=== PATIENT | male | born 1940 | race Caucasian/White ===

== ENCOUNTER 2016-09-11 09:21 | Day surgery (SDC) | payer MEDICARE, OTHER ==
[~2016-09-11] VITALS: Ht 177.8 cm; Wt 106.0 kg
[2016-09-11 09:57] VITALS: BP 193/95
[2016-09-11] MEDS ORDERED: GLIM4TAB2 PO (10:02)
[2016-09-11] MEDS ORDERED: TRAM50TA2 PO (10:02)
[2016-09-11] MEDS ORDERED: BUDE10.2 INH (10:02)
[2016-09-11] MEDS ORDERED: CA C1TAB39 PO (10:02)
[2016-09-11] MEDS ORDERED: RANI150T4 PO (10:02)
[2016-09-11] MEDS ORDERED: LACTATED RINGERS 1,000 ML IV SCH (10:03)
[2016-09-11] MEDS ORDERED: LIDOCAINE 1%, 2ML ONE (10:08)
[2016-09-11] MEDS ORDERED: LIDOCAINE 1%, 2ML SQ PRN (10:30)
[2016-09-11 10:41] VITALS: BP 162/82
[2016-09-11] MEDS ORDERED: FENTANYL PF 250 MCG/5ML ONE (10:44)
[2016-09-11] MEDS ORDERED: MIDAZOLAM 1 MG/ML, 2ML ONE (10:45)
[2016-09-11] MEDS ORDERED: MITOMYCIN 40 MG in STERILE WATER 20 ML INTVESIC ONE (11:30)
[2016-09-11] MEDS ORDERED: hydrALAzine 20 MG/ML, 1ML IV PRN (13:00)
[2016-09-11] MEDS ORDERED: LABETALOL 5MG/ML, 20ML IV PRN (13:00)
[2016-09-11] MEDS ORDERED: ACETAMINOPHEN 325 MG TABLET PO PRN (13:00)
[2016-09-11] MEDS ORDERED: HYDROmorphone 1 MG/ML, 1ML IV PRN (13:00)
[2016-09-11] MEDS ORDERED: FENTANYL PF 100 MCG/2ML IV PRN (13:00)
[2016-09-11] MEDS ORDERED: ONDANSETRON 2MG/ML, 2ML IVPush PRN (13:00)
[2016-09-11] MEDS ORDERED: OXYcodone 5 MG/5 ML ORAL.SOL UDC PO PRN (13:00)
[2016-09-11] MEDS ORDERED: METOCLOPRAMIDE 5 MG/ML, 2ML IV PRN (13:00)
[2016-09-11] MEDS ORDERED: OMNIPAQUE 350 MG/ML, 50 ML BOTTLE ONE (13:22)
[2016-09-11] MEDS ORDERED: ACETAMINOPHEN 650 MG/20.3 ML UDC ONE (13:39)
[2016-09-11] MEDS ORDERED: OXYcodone 5 MG/5 ML ORAL.SOL UDC ONE (13:39)
[2016-09-11] MEDS ORDERED: CEFAZOLIN 1,000 MG ONE (16:52)
[2016-09-11] MEDS ORDERED: PROPOFOL 10 MG/ML, 20ML ONE (16:52)
[2016-09-11] MEDS ORDERED: ONDANSETRON 2MG/ML, 2ML ONE (16:52)
[2016-09-11] MEDS ORDERED: ROCURONIUM 10 MG/ML ONE (16:52)
[2016-09-11] MEDS ORDERED: SUCCINYLCHOLINE 20 MG/ML, 10ML ONE (16:52)
== END 2016-09-11 17:00 | disposition home or self-care (01) ==
LOC: OUT 09:21
PROVIDERS: ATTEND Urology
DX: C67.9 Malignant neoplasm of bladder, unspecified (principal); C66.1 Malignant neoplasm of right ureter; I10 Essential (primary) hypertension; E11.9 Type 2 diabetes mellitus without complications; J44.9 Chronic obstructive pulmonary disease, unspecified; J45.909 Unspecified asthma, uncomplicated; Z72.89 Other problems related to lifestyle; Z90.49 Acquired absence of other specified parts of digestive tract; Z98.890 Other specified postprocedural states; Z87.440 Personal history of urinary (tract) infections; Z87.891 Personal history of nicotine dependence; N13.30 Unspecified hydronephrosis; Z79.84 Long term (current) use of oral hypoglycemic drugs
CPT/HCPCS: 51720; 52235; 52354; 74420; 81003; 82962; 88304; 88305; 88307; 93005; C1758; C1769; J0330; J0360; J0690; J2250; J2405; J2704; J3010; J3490; J7120; J9280; Q9967

== ENCOUNTER 2017-03-07 14:56 | Inpatient (IN) | payer MEDICARE ==
[~2017-03-07] VITALS: Ht 177.8 cm; Wt 108.3 kg
[~2017-03-07 14:56] MED LIST: BUDE10.2 INH; CA C1TAB39 PO; CIPR500T87 PO; ETOMIDATE 20 MG/10 ML ONE; GLIM4TAB2 PO; GLIP5TAB10 PO; GLUC1TAB55 PO; HYDR-3240 PO; MAGN400T36 PO; METR750T PO; PROPOFOL 10 MG/ML, 100ML IV ONE; RANI150T4 PO; ROCURONIUM 10MG/ML,5ML ONE; TRAM50TA2 PO
[2017-03-07 16:41] LABS: HEMATOCRIT 39.6 % (39.2-51.8); HEMOGLOBIN 13.2 g/dL (13.7-18.0); WHITE BLOOD COUNT 15.7 x10^3/uL (3.4-10)
[2017-03-07 16:55] LABS: BLOOD UREA NITROGEN 86 mg/dL (7-18)
[2017-03-07 17:11] LABS: ASPARTATE AMINO TRANSFERASE 32 U/L (15-37)
[2017-03-07] MEDS ORDERED: MORPHINE SULFATE 4 MG/ML, 1ML IVPush ONE (17:30)
[2017-03-07] MEDS ORDERED: CEFTAZIDIME PMX 2 GM/50ML 50 ML IV ONE (17:30)
[2017-03-07] MEDS ORDERED: CEFTAZIDIME 2,000 MG in SODIUM CHLORIDE 0.9% 50 ML IV ONE (17:30)
[2017-03-07] MEDS ORDERED: SODIUM CHLORIDE 0.9%, 500ML IVBOLUS ONE (17:30)
[2017-03-07] MEDS ORDERED: MORPHINE SULFATE 4 MG/ML, 1ML ONE (17:44)
[2017-03-07] MEDS ORDERED: VANCOMYCIN PER PHARMACY MC ONE (18:00)
[2017-03-07] MEDS ORDERED: DOCUSATE 100 MG CAPSULE PO PRN (19:00)
[2017-03-07] MEDS ORDERED: hydrALAzine 20 MG/ML, 1ML IVPush PRN (19:00)
[2017-03-07] MEDS ORDERED: VANCOMYCIN 2,000 MG in SODIUM CHLORIDE 0.9% 500 ML IV ONE (19:00)
[2017-03-07] MEDS ORDERED: VANCOMYCIN PER PHARMACY MC PRN (19:00)
[2017-03-07] MEDS ORDERED: ACETAMINOPHEN 325 MG TABLET PO PRN (19:00)
[2017-03-07] MEDS ORDERED: PHARMACY MAY ADJ FOR RENAL FX MC PRN (19:00)
[2017-03-07] MEDS ORDERED: PHARMACOKINETIC MONITORING MC PRN (19:30)
[2017-03-07] MEDS ORDERED: PHARMACOKINETIC CONSULTATION MC ONE (19:30)
[2017-03-07 20:02] VITALS: BP 120/71
[2017-03-07] MEDS: VANCOMYCIN 2,000 MG in SODIUM CHLORIDE 0.9% 500 ML IV SCH (21:21)
[2017-03-07] MEDS: HEPARIN 5,000 UNITS/ML, 1ML SQ SCH (21:21)
[2017-03-07] MEDS ORDERED: OXYC-302 PO (22:15)
[2017-03-07] MEDS: OXYcodone/APAP 5/325MG TABLET PO PRN (22:40)
[2017-03-08 01:35] VITALS: BP 133/75
[2017-03-08] MEDS: CEFTAZIDIME 2,000 MG in SODIUM CHLORIDE 0.9% 50 ML IV SCH ×3 (01:57→17:18)
[2017-03-08] MEDS ORDERED: HYDROmorphone 2 MG/ML, 1ML IV ONE (04:00)
[2017-03-08 04:40] LABS: HEMATOCRIT 37.1 % (39.2-51.8); HEMOGLOBIN 12.7 g/dL (13.7-18.0); WHITE BLOOD COUNT 14.4 x10^3/uL (3.4-10)
[2017-03-08 04:50] LABS: BLOOD UREA NITROGEN 85 mg/dL (7-18)
[2017-03-08] MEDS: OXYcodone/APAP 5/325MG TABLET PO PRN (05:19)
[2017-03-08] MEDS: HEPARIN 5,000 UNITS/ML, 1ML SQ SCH ×3 (05:19→23:22)
[2017-03-08 08:10] VITALS: BP 149/77
[2017-03-08] MEDS: ONDANSETRON ODT 4 MG PO PRN ×2 (08:18→13:28)
[2017-03-08] MEDS: TAMSULOSIN 0.4 MG CAP.ER.24H PO SCH (10:11)
[2017-03-08] MEDS: MORPHINE SULFATE 4 MG/ML, 1ML IV PRN ×3 (11:30→19:46)
[2017-03-08] MEDS: OXYcodone/APAP 10/325MG TABLET PO PRN ×2 (13:25→23:20)
[2017-03-08 13:48] VITALS: BP 135/80
[2017-03-08 15:34] LABS: HEMATOCRIT 38.4 % (39.2-51.8); HEMOGLOBIN 12.9 g/dL (13.7-18.0); WHITE BLOOD COUNT 15.3 x10^3/uL (3.4-10)
[2017-03-08 15:42] LABS: ASPARTATE AMINO TRANSFERASE 29 U/L (15-37); BLOOD UREA NITROGEN 83 mg/dL (7-18)
[2017-03-08] MEDS: INSULIN ASPART 100 UNITS/ML, PEN SQ-INSULIN SCH ×2 (16:00→23:39)
[2017-03-08] MEDS ORDERED: LIDOCAINE 1%, 20ML ONE (16:26)
[2017-03-08 17:04] LABS: CYTOLOGY BODY FLUID RECD INTO PATHOLOGY; CYTOLOGY BODY FLUID SOURCE ASCITES FLUID
[2017-03-08] MEDS ORDERED: DEXTROSE 50%, 50ML SYRINGE IVPush ONE (17:30)
[2017-03-08] MEDS ORDERED: CALCIUM CHLORIDE 6.8 MEQ in SODIUM CHLORIDE 0.9% 100 ML IV ONE (17:30)
[2017-03-08] MEDS ORDERED: CALCIUM CHLORIDE 10%, 10ML SYR IVPush ONE (17:30)
[2017-03-08] MEDS ORDERED: INSULIN REGULAR 100 UNITS/ML, 3ML VIAL IVPush ONE ×2 (17:30→23:00)
[2017-03-08 19:26] VITALS: BP 140/78
[2017-03-08 21:07] LABS: HEMATOCRIT 31.6 % (39.2-51.8); HEMOGLOBIN 10.6 g/dL (13.7-18.0)
[2017-03-08 21:14] LABS: BLOOD UREA NITROGEN 99 mg/dL (7-18)
[2017-03-08 21:21] LABS: IS PT STATUS REG ER OR PRE ER? NO
[2017-03-08 21:26] LABS: ABG COLLECTION SITE RIGHT RADIAL; COLLATERAL CIRCULATION TESTING NORMAL
[2017-03-08 22:26] VITALS: BP 95/68
[2017-03-08] MEDS: VANCOMYCIN 2,000 MG in SODIUM CHLORIDE 0.9% 500 ML IV SCH (23:44)
[2017-03-08] MEDS: FUROSEMIDE 40 MG/4 ML IV SCH (23:44)
[2017-03-08] MEDS: SODIUM CHLORIDE 0.9% 1,000 ML IV SCH (23:45)
[2017-03-09] MEDS: MORPHINE SULFATE 4 MG/ML, 1ML IV PRN ×2 (01:25→02:17)
[2017-03-09] MEDS ORDERED: ALBUMIN HUMAN 25% 100 ML IV STA (01:45)
[2017-03-09] MEDS ORDERED: FUROSEMIDE 40 MG/4 ML IV ONE (02:00)
[2017-03-09] MEDS: CEFTAZIDIME 2,000 MG in SODIUM CHLORIDE 0.9% 50 ML IV SCH (02:18)
[2017-03-09 02:19] LABS: ABG COLLECTION SITE RIGHT BRACHIAL
[2017-03-09] MEDS ORDERED: NOREPINEPHRINE 1 MG/ML, 4ML ONE ×2 (02:27→12:11)
[2017-03-09 03:21] LABS: ABG COLLECTION SITE RIGHT BRACHIAL
[2017-03-09 03:27] LABS: HEMATOCRIT 23.7 % (39.2-51.8)
[2017-03-09] MEDS ORDERED: PROPOFOL 100 ML IV PRN (03:31)
[2017-03-09] MEDS ORDERED: NOREPINEPHRINE 4 MG in SODIUM CHLORIDE 0.9% 246 ML IV PRN (03:31)
[2017-03-09 03:40] LABS: BLOOD UREA NITROGEN 113 mg/dL (7-18)
[2017-03-09 03:43] LABS: DIFF TOTAL CELLS COUNTED 100 CELL DIFF
[2017-03-09 03:44] LABS: VERIFY COUNTS? YES
[2017-03-09 03:45] LABS: ANISOCYTOSIS 1+; POLYCHROMASIA 1+
[2017-03-09] MEDS ORDERED: INSULIN REGULAR 100 UNITS/ML, 3ML VIAL IVPush ONE ×2 (04:00→13:30)
[2017-03-09] MEDS ORDERED: LIDOCAINE-MPF 1%, 2ML ENDO PRN (04:00)
[2017-03-09] MEDS ORDERED: SODIUM CHLORIDE 0.9%, 500ML IVBOLUS PRN (04:00)
[2017-03-09] MEDS ORDERED: DEXTROSE 50%, 50ML SYRINGE IVPush ONE ×3 (04:00→19:30)
[2017-03-09] MEDS ORDERED: VASOPRESSIN 100 UNIT in SODIUM CHLORIDE 0.9% 495 ML IV PRN (04:00)
[2017-03-09] MEDS ORDERED: SODIUM POLYSTYRENE SULFONATE ORAL SUSP PO ONE (04:00)
[2017-03-09] MEDS: VASOPRESSIN 100 UNIT in SODIUM CHLORIDE 0.9% 495 ML IV PRN (04:21)
[2017-03-09] MEDS: SODIUM CHLORIDE 0.9% IV SCH ×3 (04:41→21:09)
[2017-03-09] MEDS: SODIUM BICARBONATE IV SCH ×3 (04:41→21:09)
[2017-03-09 05:00] VITALS: BP 88/55
[2017-03-09] MEDS ORDERED: SODIUM CHLORIDE 0.9% 1,000 ML IV SCH (05:00)
[2017-03-09] MEDS: HEPARIN 5,000 UNITS/ML, 1ML SQ SCH ×2 (05:47→13:00)
[2017-03-09] MEDS ORDERED: ETOMIDATE 20 MG/10 ML IVPush ONE (07:00)
[2017-03-09] MEDS ORDERED: ROCURONIUM 10 MG/ML,10ML IVPush ONE ×2 (07:00)
[2017-03-09] MEDS: INSULIN ASPART 100 UNITS/ML, PEN SQ-INSULIN SCH ×3 (07:00→19:04)
[2017-03-09 07:03] LABS: HEMATOCRIT 25.7 % (39.2-51.8); HEMOGLOBIN 8.4 g/dL (13.7-18.0)
[2017-03-09] MEDS: FUROSEMIDE 40 MG/4 ML IV SCH (09:00)
[2017-03-09] MEDS: TAMSULOSIN 0.4 MG CAP.ER.24H PO SCH (09:00)
[2017-03-09 10:08] LABS: ABG COLLECTION SITE NOT DOCUMENTED
[2017-03-09 10:12] LABS: HEMOGLOBIN 7.4 g/dL (13.7-18.0)
[2017-03-09 10:34] LABS: HEMATOCRIT 22.1 % (39.2-51.8)
[2017-03-09] MEDS: MEROPENEM 1 GM in SODIUM CHLORIDE 0.9% 100 ML IV SCH ×2 (10:56→23:36)
[2017-03-09] MEDS ORDERED: PANTOPRAZOLE 80 MG in SODIUM CHLORIDE 0.9% 50 ML IV ONE (11:00)
[2017-03-09] MEDS: NOREPINEPHRINE 8 MG in SODIUM CHLORIDE 0.9% 242 ML IV PRN ×2 (12:20→21:08)
[2017-03-09] MEDS ORDERED: PHENYLEPHRINE 20 MG in SODIUM CHLORIDE 0.9% 248 ML IV PRN (12:30)
[2017-03-09] MEDS: PANTOPRAZOLE 80 MG in SODIUM CHLORIDE 0.9% 100 ML IV SCH ×2 (12:38→19:17)
[2017-03-09] MEDS: OCTREOTIDE 500 MCG in SODIUM CHLORIDE 0.9% 249 ML IV SCH ×2 (12:38→20:21)
[2017-03-09] MEDS: SODIUM CHLORIDE 0.9% 1,000 ML IV SCH ×2 (12:41→19:20)
[2017-03-09] MEDS ORDERED: SODIUM POLYSTYRENE SULFONATE ORAL SUSP PR ONE (13:30)
[2017-03-09] MEDS ORDERED: PHENYLEPHRINE 40 MG in SODIUM CHLORIDE 0.9% 246 ML IV PRN (13:43)
[2017-03-09] MEDS ORDERED: NALOXONE 1 MG/ML, 2ML ONE (14:00)
[2017-03-09] MEDS: PHENYLEPHRINE 80 MG in SODIUM CHLORIDE 0.9% 242 ML IV PRN ×2 (16:37→21:08)
[2017-03-09] MEDS ORDERED: DEXTROSE 50%, 50ML SYRINGE ONE (19:13)
[2017-03-09] MEDS ORDERED: CALCIUM GLUCONATE 9.2 MEQ in SODIUM CHLORIDE 0.9% 100 ML IV ONE (19:53)
[2017-03-09] MEDS: VANCOMYCIN 2,000 MG in SODIUM CHLORIDE 0.9% 500 ML IV SCH (21:09)
[2017-03-09 21:45] VITALS: BP 110/45
[2017-03-09 22:00] VITALS: BP 93/41
[2017-03-09 22:30] VITALS: BP 88/43
[2017-03-09 23:00] VITALS: BP 90/42
[2017-03-09 23:49] VITALS: BP 107/41
[2017-03-10] VITALS (7 sets, daily range): BP systolic 102–114; BP diastolic 44–53
[2017-03-10] MEDS: INSULIN ASPART 100 UNITS/ML, PEN SQ-INSULIN SCH ×3 (01:00→13:00)
[2017-03-10] MEDS: PHENYLEPHRINE 80 MG in SODIUM CHLORIDE 0.9% 242 ML IV PRN ×4 (01:19→15:37)
[2017-03-10] MEDS: NOREPINEPHRINE 8 MG in SODIUM CHLORIDE 0.9% 242 ML IV PRN ×4 (01:21→15:37)
[2017-03-10] MEDS: SODIUM BICARBONATE IV SCH (04:51)
[2017-03-10] MEDS: SODIUM CHLORIDE 0.9% IV SCH (04:51)
[2017-03-10 05:35] LABS: ABG COLLECTION SITE RIGHT RADIAL; COLLATERAL CIRCULATION TESTING NORMAL
[2017-03-10 05:54] LABS: BLOOD UREA NITROGEN 130 mg/dL (7-18)
[2017-03-10 06:08] LABS: DIFF TOTAL CELLS COUNTED 100 CELL DIFF; HEMATOCRIT 25.7 % (39.2-51.8); HEMOGLOBIN 8.9 g/dL (13.7-18.0); WHITE BLOOD COUNT 22.8 x10^3/uL (3.4-10)
[2017-03-10 06:10] LABS: ANISOCYTOSIS 1+; POLYCHROMASIA 1+; VERIFY COUNTS? YES
[2017-03-10 06:11] LABS: HYPOCHROMIA 1+
[2017-03-10] MEDS: OCTREOTIDE 500 MCG in SODIUM CHLORIDE 0.9% 249 ML IV SCH (06:44)
[2017-03-10] MEDS: MORPHINE SULFATE 4 MG/ML, 1ML IV PRN ×2 (07:55→14:58)
[2017-03-10] MEDS ORDERED: SODIUM BICARB 8.4%,50ML SYR. 100 MEQ in DEXTROSE 5% 1,000 ML IV SCH (09:00)
[2017-03-10] MEDS: TAMSULOSIN 0.4 MG CAP.ER.24H PO SCH (09:00)
[2017-03-10] MEDS: ALBUMIN HUMAN 25% 100 ML IV SCH ×2 (10:01→15:42)
[2017-03-10] MEDS: PANTOPRAZOLE 80 MG in SODIUM CHLORIDE 0.9% 100 ML IV SCH (10:10)
[2017-03-10 11:02] LABS: PTH INTACT INTERPRETATION ** Comment **
[2017-03-10 11:13] LABS: HEMOGLOBIN 8.4 g/dL (13.7-18.0)
[2017-03-10] MEDS: VASOPRESSIN 100 UNIT in SODIUM CHLORIDE 0.9% 495 ML IV PRN (11:14)
[2017-03-10] MEDS: MEROPENEM 1 GM in SODIUM CHLORIDE 0.9% 100 ML IV SCH (11:17)
[2017-03-10 11:35] LABS: PARATHYROID HORMONE INTACT 682.4 pg/mL (14-72)
[2017-03-10 11:53] LABS: FERRITIN 9887.2 ng/mL (26-388)
[2017-03-10] MEDS ORDERED: morphine SULFATE 10 MG/ML, 1ML ONE (17:09)
[2017-03-10] MEDS: LORazepam 2 MG/ML, 1ML IVPush PRN ×2 (17:16→17:26)
[2017-03-10] MEDS ORDERED: MORPHINE SULFATE 4 MG/ML, 1ML IVPush ONE (17:30)
[2017-03-11] MEDS ORDERED: MEROPENEM 500 MG in SODIUM CHLORIDE 0.9% 100 ML IV SCH
== END 2017-03-11 05:21 | disposition expired | DRG 871 ==
LOC: ED 17:31 → 3NW 17:32 → ED 18:08 → 4WST 03-08 22:17 → CCU 03-09 02:03
PROVIDERS: ADMIT Internal Medicine; ATTEND Internal Medicine
PROC: 0W9G3ZZ Drainage of Peritoneal Cavity, Percutaneous Approach (ICD-10-PCS; 2017-03-08)
PROC: 5A1945Z Respiratory Ventilation, 24-96 Consecutive Hours (ICD-10-PCS; principal; 2017-03-09)
PROC: 0BH18EZ Insertion of Endotracheal Airway into Trachea, Via Natural or Artificial Opening Endoscopic (ICD-10-PCS; 2017-03-09)
PROC: 30233N1 Transfusion of Nonautologous Red Blood Cells into Peripheral Vein, Percutaneous Approach (ICD-10-PCS; 2017-03-09)
PROC: 06HM33Z Insertion of Infusion Device into Right Femoral Vein, Percutaneous Approach (ICD-10-PCS; 2017-03-09)
PROC: B54BZZA Ultrasonography of Right Lower Extremity Veins, Guidance (ICD-10-PCS; 2017-03-09)
DX: A41.9 Sepsis, unspecified organism (principal); N17.0 Acute kidney failure with tubular necrosis; J96.21 Acute and chronic respiratory failure with hypoxia; R65.21 Severe sepsis with septic shock; Z99.11 Dependence on respirator [ventilator] status; G93.40 Encephalopathy, unspecified; J90 Pleural effusion, not elsewhere classified; K65.2 Spontaneous bacterial peritonitis; E44.0 Moderate protein-calorie malnutrition; C66.1 Malignant neoplasm of right ureter; K92.2 Gastrointestinal hemorrhage, unspecified; E87.1 Hypo-osmolality and hyponatremia; N39.0 Urinary tract infection, site not specified; J44.9 Chronic obstructive pulmonary disease, unspecified; E83.51 Hypocalcemia; E86.0 Dehydration; C67.9 Malignant neoplasm of bladder, unspecified; E11.9 Type 2 diabetes mellitus without complications; E87.5 Hyperkalemia; K70.31 Alcoholic cirrhosis of liver with ascites; F10.10 Alcohol abuse, uncomplicated; I10 Essential (primary) hypertension; K21.9 Gastro-esophageal reflux disease without esophagitis; K80.20 Calculus of gallbladder without cholecystitis without obstruction; Z82.49 Family history of ischemic heart disease and other diseases of the circulatory system; Z82.5 Family history of asthma and other chronic lower respiratory diseases; Z83.3 Family history of diabetes mellitus; Z85.51 Personal history of malignant neoplasm of bladder; Z87.891 Personal history of nicotine dependence; Z90.49 Acquired absence of other specified parts of digestive tract; Z99.81 Dependence on supplemental oxygen; Z68.34 Body mass index [BMI] 34.0-34.9, adult; Z66 Do not resuscitate; Z51.5 Encounter for palliative care
CPT/HCPCS: 31500; 36415; 36600; 49083; 71010; 74022; 74176; 76700; 80048; 80053; 80074; 80202; 81001; 82150; 82306; 82310; 82330; 82533; 82550; 82728; 82800; 82803; 82962; 83540; 83550; 83605; 83690; 83735; 83970; 84100; 84132; 84478; 84484; 85014; 85018; 85025; 85610; 86850; 86870; 86900; 86902; 86922; 86923; 87040; 87070; 87075; 87077; 87081; 87086; 87186; 87205; 88112; 88305; 89051; 93005; 94002; 94003; 96374; J0610; J1170; J1644; J1815; J1940; J2185; J2354; J2704; J3370; J3490; J7070; P9047; Q0162; C1750; C9113; J2060; J2310; J2370; J7030; J7040; J7050; P9016